=== PATIENT | male | born 1990 | race Caucasian/White ===

== ENCOUNTER 2018-12-03 20:27 | Emergency (ER) | payer SELFPAY ==
[2018-12-03 20:29] VITALS: BP 149/95; PULSE 82; RESP 20; TEMP 36.6; O2SAT 98; BMI 21.7
[2018-12-03 20:42] VITALS: PULSE 97; RESP 17; O2SAT 99
--- NOTE | 2018-12-03 20:49 | ED.DCSUM_ITS ---
History of Present Illness Chief Complaint: Chest Pain Informant: Patient Onset: Days Context: Sudden Onset Timing: Intermittent Quality: Pain Location: Left chest Current Severity: Recently no discomfort Maximum Severity: Moderate Worsened by: Nothing that he is able to tell me Relieved by: Nothing Associated Symptoms: URI symptoms and nonproductive cough Narrative: Patient is a 28-year-old male who has history of smoking presents with left- sided chest pain. There may be a pleuritic component. There is association with cough. He denies fever chills. Denies ocular, visual auditory symptoms. He did report nasal congestion rhinorrhea. He denies leg pain, swelling discoloration. He denies any other symptoms. Prior similar symptoms: No Recent Illness/Hospitalization: No - Past Medical History (1) No significant past medical history Status: Acute Past Medical History - Allergies and Home Meds Allergies/Adverse Reactions: Allergies No Known Allergies Allergy (Verified 12/03/18 20:28) Primary Care Physician: Aden Betancourt MD [Primary Care Provider] - Prior records reviewed: Yes Past Medical History: None Surgical History: no surgical history Lives: Spouse/ Significant Other Smoking Status: Current every day smoker Alcohol: Rare Review of Systems General: Denies: Chills, Fever, Malaise, Sweats Eyes: Denies: Visual changes - bilaterally, Blurred Vision - bilaterally, Diplopia ENT: Reports: Rhinorrhea. Denies: Bilateral ear pain, Sore throat Cardiovascular: Reports: Chest pain. Denies: Palpitations, Heart racing Respiratory: Reports: Cough. Denies: Dyspnea, Sputum, Dyspnea on exertion Gastrointestinal: Denies: Abdominal pain, Nausea, Vomiting, Diarrhea Musculoskeletal: Denies: Myalgias, Arthralgias, Neck pain, Back pain, Swelling, Extremity Pain Neurological: Denies: Headache, Weakness, Parasthesia, Numbness Endocrine: Denies: Polyuria, Polydipsia Hematologic: Denies: Easy bruising Physical Exam Vital Signs/Narrative: Vital Signs Temp Pulse Resp BP Pulse Ox 12/03/18 20:42 97 17 99 12/03/18 20:29 97.8 F 82 20 H 149/95 H 98 Inital Vital Signs reviewed: Yes General: Well nourished, Well developed, No Acute Distress Head: Normocephalic, Atraumatic Eyes: Perrl, EOMI. Negative for: Pale conjunctiva, Scleral icterus, - ENT: Moist mucous membranes, TM's clear, Nasal congestion. Negative for: Sinus tenderness Neck: Supple, Nontender, No lymphadenopathy, No JVD, - Cardiovascular: Regular rate, Regular rhythm, No murmurs Respiratory: No distress, CTA bilaterally, Chest tenderness - Fifth intercostal space on the left Extremities: Nontender, No edema Skin: Normal color, No rash Neurological: Alert, Oriented x3, Cranial nerves II-XII grossly intact, Normal Strength, Normal Sensation Diagnostic/Tx/Re-eval - EKG Initial EKG Interpretation: Sinus Rhythm - Circular rate 76. PA interval is short. EKG is otherwise normal. - Medical Decision Making With recent respiratory symptoms and reproducible chest discomfort left fourth fifth intercostal space findings and history are consistent with costochondritis. Will treat with NSAIDs since there is no contraindication. EKG was obtained per nursing protocol. Patient is PERC negative. ED Disposition - Plan for ED Patient: Disposition: Home or Assisted Living Diagnosis: Costochondritis, acute Instructions: ED Chest Pain Costochondritis Prescriptions: Naproxen [Naprosyn] 500 mg PO BID #[id number] tab Referrals: Aden Betancourt MD [Primary Care Provider] - 1 Week if not improving Additional Instructions: It is in your best interest to stop smoking.
[2018-12-03] MEDS: Naproxen 250 MG Tablet 500 MG PO (21:05)
--- NOTE | 2018-12-03 21:05 | EKG12_ITS ---
Test Reason : CP Blood Pressure : / mmHG Vent. Rate : 076 BPM Atrial Rate : 076 BPM P-R Int : 092 ms QRS Dur : 106 ms QT Int : 366 ms P-R-T Axes : 029 064 049 degrees QTc Int : 411 ms Sinus rhythm with short [place] Consider voltage critieria for LVH Confirmed by ARUN SHAW, KASI ([id number]), design editor MYRANDA JOHNS ([id number] on 12/08/2018 1:06:10 PM Referred By: HEAVEN Confirmed By:KASI DIAS MD
[2018-12-03 21:08] VITALS: BP 126/97; PULSE 89; RESP 16; O2SAT 100
== END 2018-12-03 21:27 | disposition home or self-care (01) ==
PROVIDERS: Emergency Provider Emergency Medicine; Family Provider Family Medicine; PCP Family Medicine
DX: M94.0 Chondrocostal junction syndrome [Tietze] (principal); F17.200 Nicotine dependence, unspecified, uncomplicated
CPT/HCPCS: 93005; 99283